=== PATIENT | female | born 1960 ===

== ENCOUNTER 2018-03-20 08:15 | Inpatient (IN) | payer OTHER ==
[~2018-03-20] VITALS: Ht 162.6 cm; Wt 83.9 kg
[2018-03-20] MEDS ORDERED: EZETROL (13:59)
[2018-03-20] MEDS ORDERED: EXFORGE HCT 101 EAC1 PO (14:00)
== END 2018-03-22 11:02 | disposition home or self-care (01) | DRG 621 ==
LOC: EDSTATUS 08:15 → ADM 08:15 → O/R 03-21 06:00 → SURG 03-21 08:15 → SURH 03-21 19:00
PROVIDERS: Specialist
PROC: 0J0H3ZZ Alteration of Left Lower Arm Subcutaneous Tissue and Fascia, Percutaneous Approach (ICD-10-PCS; 2018-03-21)
PROC: 0J0D3ZZ Alteration of Right Upper Arm Subcutaneous Tissue and Fascia, Percutaneous Approach (ICD-10-PCS; 2018-03-21)
PROC: 0J0F3ZZ Alteration of Left Upper Arm Subcutaneous Tissue and Fascia, Percutaneous Approach (ICD-10-PCS; 2018-03-21)
PROC: 0J0G3ZZ Alteration of Right Lower Arm Subcutaneous Tissue and Fascia, Percutaneous Approach (ICD-10-PCS; 2018-03-21)
PROC: 0J073ZZ Alteration of Back Subcutaneous Tissue and Fascia, Percutaneous Approach (ICD-10-PCS; 2018-03-21)
PROC: 0J080ZZ Alteration of Abdomen Subcutaneous Tissue and Fascia, Open Approach (ICD-10-PCS; principal; 2018-03-21 08:30)
PROC: 0HBV0ZZ Excision of Bilateral Breast, Open Approach (ICD-10-PCS; 2018-03-21 08:30)
DX: E65 Localized adiposity (principal); N62 Hypertrophy of breast; K43.2 Incisional hernia without obstruction or gangrene